=== PATIENT | female | born 1950 | race Caucasian/White ===

== ENCOUNTER 2018-01-06 21:47 | Emergency (ER) | payer OTHER ==
[~2018-01-06] VITALS: Ht 160 cm; Wt 63.5 kg
--- NOTE | ~2018-01-06 | EKG ---
[place] [address] [facility] [place] [place] [address] ELECTROCARDIOGRAM REPORT Name: KYA MUJICA Room #: [facility]#: [id number] Admission: 01/06/18 Attend Phys: Discharge: 01/07/18 Date of : 52 Report #: [id number] THIS REPORT FOR: //name// [facility] ED Test Date: 2018-01-06 Test Time: 21:59:20 Pat Name: KYA MUJICA Department: Room: Gender: F [employer] Operator: : 1950 Requested By: Paty Redmond Order Number: [id number] MD: Chuck Valente Measurements Intervals [place] Rate: 91 P: 60 MN: 159 QRS: 35 QRSD: 88 T: 28 QT: 348 QTc: 429 Interpretive Statements Sinus rhythm Nonspecific ST segment abnormality No previous ECG available for comparison Electronically Signed On 01-07-2018 8:32:33 CDT by Chuck Valente [email or web address] <ELECTRONICALLY SIGNED> By: Chuck Valente MD, [facility] 01/07/18 [id number] Chuck Valente MD, FACC /EPI
[2018-01-06] MEDS ORDERED: MOBIC15 MG PO (21:56)
[2018-01-06] MEDS ORDERED: LISINOPRIL10 MG PO (21:56)
[2018-01-06] MEDS ORDERED: AMBIEN 5 MG TABL5 M1 PO (21:56)
[2018-01-06] MEDS ORDERED: NASAL DECONGEST30 MG PO (21:57)
[2018-01-06] MEDS ORDERED: CELEXA20 MG PO (21:57)
[2018-01-06 22:28] LABS: ABSOLUTE NEUTROPHILS 10.4 thou/uL (1.4-8.2); BASOPHILS 0.4 % (0.0-2.0); EOSINOPHILS 0.7 % (0.0-3.0); HEMOGLOBIN 12.1 gm/dL (12.0-15.0); LYMPHOCYTES 10.4 % (24.0-44.0); MCH 28.8 pg (26.0-34.0); MCHC 33.6 g/dL (28.0-37.0); MCV 85.6 fL (80.0-100.0); MONOCYTES 6.6 % (1.0-8.0); PLATELET COUNT 270 thou/uL (150-400); POLYS 81.9 % (36.0-66.0); RBC 4.21 mil/uL (4.20-5.00); RDW 15.4 % (10.5-14.5); WBC 12.7 thou/uL (4.0-11.0)
[2018-01-06 22:35] LABS: ANION GAP 12 mmol/L (7-16); BUN 26 mg/dL (7-18); CALCIUM 9.8 mg/dL (8.5-10.1); CHLORIDE 101 mmol/L (98-107); CO2 23 mmol/L (21-32); CREATININE 1.4 mg/dL (0.6-1.0); GLUCOSE 152 mg/dL (74-106); POTASSIUM 3.4 mmol/L (3.5-5.1); SODIUM 136 mmol/L (136-145)
[2018-01-06 22:43] LABS: SGOT 23 U/L (15-37); SGPT 16 U/L (30-65); TOTAL BILIRUBIN 0.4 mg/dL (<0.1-1.0); TOTAL PROTEIN 8.1 g/dL (6.4-8.2); TROPONIN-I <0.06 ng/mL (<0.06)
[2018-01-06 23:52] LABS: URINE BILIRUBIN 1+ (Negative); URINE BLOOD NEGATIVE (Negative); URINE CLARITY SL CLOUDY; URINE COLOR YELLOW; URINE GLUCOSE-RANDOM* NEGATIVE (Negative); URINE KETONES TRACE (Negative); URINE LEUKOCYTES 1+ (Negative); URINE NITRITE NEGATIVE (Negative); URINE PROTEIN (DIPSTICK) TRACE (Negative); URINE SPECIFIC GRAVITY 1.025 (1.005-1.035); URINE UROBILINOGEN 0.2 E.U./dl (0.2-1.0)
[2018-01-07 00:10] LABS: BACTERIA 1-9 Few /HPF (None Seen); HYALINE CASTS 4-10 Moderate /LPF (None Seen); MUCUS 0-3 Light strn/LPF (None Seen); SQUAMOUS 4-10 Moderate /LPF (0-3); URINE RBC None Seen /HPF (0-2); URINE WBC 0-5 Rare /HPF (0-5)
[2018-01-07 00:11] LABS: CRYSTALS None Seen /LPF (None Seen); TRANSITIONAL EPITHEL CELL 0-3 Few /LPF (None Seen)
[2018-01-07 01:00] VITALS: BP 101/62
== END 2018-01-07 01:01 | disposition home or self-care (01) ==
LOC: ER 21:47
PROVIDERS: Physician Assistant
DX: R42 Dizziness and giddiness (principal); E86.0 Dehydration; R25.2 Cramp and spasm; N28.9 Disorder of kidney and ureter, unspecified